=== PATIENT | male | born 1990 | race Caucasian/White ===

== ENCOUNTER 2017-02-01 14:42 | Emergency (ER) | payer OTHER | END 2017-02-01 15:50 | disposition home or self-care (01) | LOC: ER1 14:42 | DX: T65.891A Toxic effect of other specified substances, accidental (unintentional), initial encounter (principal); T25.631A Corrosion of second degree of right toe(s) (nail), initial encounter; T25.521A Corrosion of first degree of right foot, initial encounter; Z23 Encounter for immunization | CPT/HCPCS: 80307; 90471; 90715; 99001; 99283 ==

== ENCOUNTER → 2021-07-05 | Outpatient (CLI) | payer OTHER ==
[~2021-07-05] MED LIST: AMOXICILLIN875 MG PO; IBUPROFEN800 MG PO
== END ==
LOC: EXRD 08:59
DX: L40.50 Arthropathic psoriasis, unspecified (principal); M54.9 Dorsalgia, unspecified
CPT/HCPCS: 72202